=== PATIENT | male | born 1935 | race Caucasian/White ===

== ENCOUNTER → 2023-11-06 09:57 | Outpatient (BNVA) | payer MEDICARE, SELFPAY | PROVIDERS: PCP Internal Medicine; Referring Provider Internal Medicine; Visit Provider Internal Medicine | DX: E03.9 Hypothyroidism, unspecified (principal); E78.5 Hyperlipidemia, unspecified; M79.606 Pain in leg, unspecified; E55.9 Vitamin D deficiency, unspecified; Z79.890 Hormone replacement therapy | CPT/HCPCS: 99204 ==

== ENCOUNTER → 2024-02-26 10:39 | Outpatient (BNVA) | payer MEDICARE, SELFPAY | PROVIDERS: PCP Internal Medicine; Visit Provider Internal Medicine | DX: E03.9 Hypothyroidism, unspecified (principal); E78.5 Hyperlipidemia, unspecified; M79.606 Pain in leg, unspecified; E55.9 Vitamin D deficiency, unspecified; Z79.890 Hormone replacement therapy | CPT/HCPCS: 99214 ==

== ENCOUNTER → 2024-06-28 10:45 | Outpatient (BNVA) | payer MEDICARE, SELFPAY | PROVIDERS: PCP Internal Medicine; Visit Provider Internal Medicine | DX: E03.9 Hypothyroidism, unspecified (principal); E78.5 Hyperlipidemia, unspecified; Z79.890 Hormone replacement therapy; Z68.32 Body mass index [BMI] 32.0-32.9, adult | CPT/HCPCS: 99214 ==

== ENCOUNTER → 2024-11-19 11:39 | Outpatient (BNVA) | payer MEDICARE, SELFPAY | PROVIDERS: PCP Internal Medicine; Visit Provider Internal Medicine | DX: E03.9 Hypothyroidism, unspecified (principal); E78.5 Hyperlipidemia, unspecified; M79.606 Pain in leg, unspecified; E55.9 Vitamin D deficiency, unspecified | CPT/HCPCS: 99214 ==

== ENCOUNTER → 2025-01-14 11:31 | Outpatient (BNVA) | payer MEDICARE, SELFPAY | PROVIDERS: PCP Internal Medicine; Visit Provider Internal Medicine | DX: E03.9 Hypothyroidism, unspecified (principal); E78.5 Hyperlipidemia, unspecified; E55.9 Vitamin D deficiency, unspecified | CPT/HCPCS: 99214 ==